=== PATIENT | male | born 1965 | race Asian ===

== ENCOUNTER → 2016-11-29 | Outpatient (CLI) | payer BC ==
[~2016-11-29] MED LIST: ALLOPURINOL100 MG PO; DILTIAZEM30 MG PO; DIOVAN80 M1 PO; GLUCOPHAGE1000 MG PO; HCTZ 25MG TAB25 MG PO; HCTZ 25MG25 MG PO; K-DUR 10 MEQ T10 MEQ PO; NORMODYNE100 MG PO; NORVASC 5MG5 MG/TAB PO; ST. JOSEPH81 M2 PO; TOPROL XL50 MG PO
== END ==
LOC: BHSO 11:42
DX: F20.89 Other schizophrenia (principal)
CPT/HCPCS: J0401

== ENCOUNTER 2016-12-11 13:40 | Day surgery (SDC) | payer BC ==
[~2016-12-11] VITALS: Ht 175.3 cm; Wt 90.0 kg
[~2016-12-11 13:40] MED LIST changes: -GLUCOPHAGE1000 MG PO; -HCTZ 25MG TAB25 MG PO; -K-DUR 10 MEQ T10 MEQ PO; -NORMODYNE100 MG PO
[2016-12-11 14:02] VITALS: BP 144/104; PULSE 59; TEMP 98
[2016-12-11] MEDS ORDERED: NORVASC 5MG5 MG/TAB PO (14:03)
[2016-12-11] MEDS ORDERED: HCTZ 25MG TAB25 MG PO (14:04)
[2016-12-11] MEDS ORDERED: GLUCOPHAGE1000 MG PO (14:04)
[2016-12-11] MEDS ORDERED: NORMODYNE100 MG PO (14:04)
[2016-12-11] MEDS ORDERED: K-DUR 10 MEQ T10 MEQ PO (14:05)
[2016-12-11 15:43] VITALS: BP 120/97; PULSE 77; TEMP 97.8
[2016-12-11 15:58] VITALS: BP 109/94; PULSE 75
[2016-12-11 16:13] VITALS: BP 117/102; PULSE 79
[2016-12-11 16:28] VITALS: BP 119/93; PULSE 77
[2016-12-11 18:02] VITALS: BP 111/92; PULSE 74
== END 2016-12-11 17:00 | disposition home or self-care (01) ==
LOC: SDCO 13:40
DX: Z12.11 Encounter for screening for malignant neoplasm of colon (principal)
CPT/HCPCS: OP; J2250; J3010; J7030

== ENCOUNTER → 2016-12-27 | Outpatient (CLI) | payer BC ==
[~2016-12-27] MED LIST changes: +GLUCOPHAGE1000 MG PO; +HCTZ 25MG TAB25 MG PO; +K-DUR 10 MEQ T10 MEQ PO; +NORMODYNE100 MG PO
== END ==
LOC: BHSO 11:27
DX: F20.89 Other schizophrenia (principal)
CPT/HCPCS: J0401

== ENCOUNTER → 2017-01-24 | Outpatient (CLI) | payer BC | LOC: BHSO 12:45 | DX: F20.89 Other schizophrenia (principal) | CPT/HCPCS: J0401 ==

== ENCOUNTER → 2017-02-25 | Outpatient (CLI) | payer BC | LOC: BHSO 11:31 | DX: F20.89 Other schizophrenia (principal) ==

== ENCOUNTER → 2017-03-28 | Outpatient (CLI) | payer BC | LOC: BHSO 11:25 | DX: F20.9 Schizophrenia, unspecified (principal) | CPT/HCPCS: J0401 ==

== ENCOUNTER → 2017-05-02 | Outpatient (CLI) | payer BC | LOC: BHSO 11:21 | DX: F20.9 Schizophrenia, unspecified (principal) | CPT/HCPCS: J0401 ==

== ENCOUNTER → 2017-06-06 | Outpatient (CLI) | payer BC | LOC: BHSO 16:26 | DX: F20.9 Schizophrenia, unspecified (principal) ==

== ENCOUNTER → 2017-07-04 | Outpatient (CLI) | payer BC | LOC: BHSO 11:29 | DX: F20.9 Schizophrenia, unspecified (principal) | CPT/HCPCS: J0401 ==

== ENCOUNTER → 2017-08-04 | Outpatient (CLI) | payer BC | LOC: BHSO 11:26 | DX: F20.9 Schizophrenia, unspecified (principal) ==

== ENCOUNTER → 2017-08-29 | Outpatient (CLI) | payer BC | LOC: BHSO 11:37 | DX: F20.9 Schizophrenia, unspecified (principal) | CPT/HCPCS: J0401 ==

== ENCOUNTER → 2017-09-26 | Outpatient (CLI) | payer BC | LOC: BHSO 11:19 | DX: F20.9 Schizophrenia, unspecified (principal) | CPT/HCPCS: J0401 ==

== ENCOUNTER → 2017-10-24 | Outpatient (CLI) | payer BC | LOC: BHSO 09:48 | DX: F20.9 Schizophrenia, unspecified (principal) | CPT/HCPCS: J0401 ==

== ENCOUNTER → 2017-11-26 | Outpatient (CLI) | payer BC | LOC: BHSO 11:15 | DX: F20.9 Schizophrenia, unspecified (principal) ==

== ENCOUNTER → 2017-12-10 | Outpatient (CLI) | payer BC | LOC: BHSO 14:42 | DX: F31.73 Bipolar disorder, in partial remission, most recent episode manic (principal) | CPT/HCPCS: G0463 ==

== ENCOUNTER → 2017-12-26 | Outpatient (CLI) | payer BC | LOC: BHSO 11:23 | DX: F20.9 Schizophrenia, unspecified (principal) ==

== ENCOUNTER → 2018-01-23 | Outpatient (CLI) | payer BC | LOC: BHSO 11:22 | DX: F20.9 Schizophrenia, unspecified (principal) | CPT/HCPCS: J0401 ==

== ENCOUNTER → 2018-02-20 | Outpatient (CLI) | payer BC | LOC: BHSO 11:18 | DX: F20.9 Schizophrenia, unspecified (principal) | CPT/HCPCS: J0401 ==

== ENCOUNTER → 2018-03-20 | Outpatient (CLI) | payer BC | LOC: BHSO 11:35 | DX: F20.9 Schizophrenia, unspecified (principal) | CPT/HCPCS: J0401 ==

== ENCOUNTER → 2018-04-17 | Outpatient (CLI) | payer BC | LOC: BHSO 11:21 | DX: F20.9 Schizophrenia, unspecified (principal) ==

== ENCOUNTER → 2019-01-15 | Outpatient (CLI) | payer BC | LOC: COL.RAD 12:24 | DX: N28.1 Cyst of kidney, acquired (principal); Z85.528 Personal history of other malignant neoplasm of kidney; Z90.5 Acquired absence of kidney ==

== ENCOUNTER → 2019-06-30 | Outpatient (CLI) | payer BC | LOC: COL.RAD 11:20 | DX: Z85.528 Personal history of other malignant neoplasm of kidney (principal) ==

== ENCOUNTER → 2021-03-01 | Outpatient (CLI) | payer BC | LOC: COL.RAD 12:20 | DX: N28.89 Other specified disorders of kidney and ureter (principal); Z90.5 Acquired absence of kidney; N18.32 Chronic kidney disease, stage 3b ==